=== PATIENT | male | born 1935 | race Caucasian/White ===

== ENCOUNTER 2019-11-11 08:49 | Outpatient (CLI) | payer MEDICARE, SELFPAY ==
[2019-11-11 09:25] LABS: Hemoglobin A1C 7.1 % (<5.7)
[2019-11-11 09:32] LABS: Alanine Aminotransferase 17 U/L (4-50); Albumin Level 3.9 g/dL (3.5-5.1); Alkaline Phosphatase 77 U/L (38-126); Aspartate Amino Transferase 26 U/L (17-59); Bilirubin,Total 0.4 mg/dL (0.2-1.3); Blood Urea Nitrogen 20 mg/dL (9-20); Calcium 9.3 mg/dL (8.4-10.2); Carbon Dioxide 29 mmol/L (22-30); Chloride 105 mmol/L (98-107); Estimated Glomerular Filt Rate > 60; Glucose 130 mg/dL (75-110); Sodium 138 mmol/L (137-145)
== END 2019-11-11 08:50 | disposition home or self-care (01) ==
PROVIDERS: PCP Family Medicine; Visit Provider Family Medicine
DX: E11.9 Type 2 diabetes mellitus without complications (principal)
CPT/HCPCS: 36415; 80053; 83036

== ENCOUNTER 2020-03-08 08:34 | Emergency (ER) | payer MEDICARE, SELFPAY ==
--- NOTE | ~2020-03-08 | XR_ITS ---
EXAMINATION: XR hand LT min 3V EXAM DATE: 03/08/2020 09:00 INDICATION: No known recent injury provided at this time. Pain of the left hand. TECHNIQUE: Left hand frontal, lateral and oblique projections obtained and reviewed. There is no pasquale or study for comparison. FINDINGS: Left metacarpal bones are unremarkable. There is severe 1st carpometacarpal primary osteo arthritis. There is mild to moderate interphalangeal primary osteoarthritis. There are no acute fract ures or dislocations identified. There is no subcutaneous gas. The soft tissue is unremarkable. T here are no radiopaque foreign bodies. There are no bony erosions identified. IMPRESSION: 1. No acute osseous findings. 2. Severe left 1st CMC joint osteoarthritis. Reviewed, dictated and finalized at location A.
[2020-03-08 08:41] VITALS: BP 120/81; PULSE 78; RESP 14; TEMP 36.6; O2SAT 97
[2020-03-08] MEDS: ACETAMINOPHEN 500 MG TABLET 1000 MG PO (09:01)
--- NOTE | 2020-03-08 09:42 | ED.UPPEXIN ---
HPI - Extremity Injury (Upper) General Chief Complaint: Extremity Injury, Upper Stated Complaint: achy hand Time Seen by Provider: 03/08/20 08:36 Source: patient Mode of arrival: ambulatory Limitations: no limitations History of Present Illness HPI narrative: This patient is an 84 year old male who presents for evaluation of left hand pain. Patient reports he woke up this morning and he noticed pain to left hand. He noticed this pain when he put on his watch. He reports swelling at his thumb. He has not taken any medication for pain. Related Data Home Medications Medication Instructions Recorded Confirmed furosemide 20 mg tablet 20 mg PO QAM 07/07/19 potassium chloride 20 mEq 20 meq PO DAILY 07/07/19 tablet,extended release Allergies Allergy/AdvReac Type Severity Reaction Status Date / Time No Known Allergies Allergy Verified 03/08/20 08:44 Review of Systems Review of Systems: All systems reviewed & are unremarkable except as noted in HPI and below PMFSH Past Medical History Medical History (Updated 03/08/20 @ 09:57 by Jessica Mccann MD) Atrial fibrillation, persistent Hypertension with heart disease Surgical History Surgical History (Updated 07/08/19 @ 08:41 by Ramo Rodriguez MD) H/O hernia repair times 5 History of bilateral knee replacement History of cholecystectomy Retinal detachment, left S/P coronary artery stent placement Social History Social History (Updated 11/11/19 @ 08:06 by Shauna Lozoya) Smoking status: Never smoker Second hand tobacco smoke exposure: No Alcohol intake: current Drinks per week: 3 Substance use: never Substance use type: does not use Gender identity (if verbalized by the patient): Male Exam Const: General: no acute distress and alert Orientation/consciousness: patient oriented x3 HENMT: Mouth: Yes Normal oral and palatal mucosa present Eyes: EOM: EOMs intact bilaterally Resp: Effort & Inspection: normal respiratory effort Skin: General skin exam: normal color Rashes: no rashes Neuro: General: patient oriented x3 and moves all extremities Extrem: Other: left hand with pain with movement at thumb. TTP along Thump and no erythema Course Reevaluation(s) Reevaluation #1: I Discussed with patient xray shows severe osteoarthritis at thumb. Date: 03/08/20 Time: 09:45 Vital Signs Vital signs: Vital Signs Temperature 97.9 F 03/08/20 08:41 Pulse Rate 78 03/08/20 08:41 Respiratory Rate 14 03/08/20 08:41 Blood Pressure 120/81 03/08/20 08:41 Pulse Oximetry 97 03/08/20 08:41 Temperature 97.9 F 03/08/20 08:41 Pulse Rate 65 03/08/20 10:14 Respiratory Rate 15 03/08/20 10:14 Blood Pressure 116/73 03/08/20 10:14 Pulse Oximetry 96 03/08/20 10:14 MDM - Extremity Injury (Upper) Imaging Data Radiologist's impression: ITS Impressions Hand X-Ray 03/08/20 09:08 IMPRESSION: 1. No acute osseous findings. 2. Severe left 1st CMC joint osteoarthritis. Discharge Plan Discharge Clinical Impression: Osteoarthritis of CMC joint of thumb Qualifiers: Osteoarthritis type: primary Laterality: left Qualified Code(s): M18.12 - Unilateral primary osteoarthritis of first carpometacarpal joint, left hand Patient Disposition: Home, Self-Care Condition: Stable Instructions: Antibiotic Form, Arthralgia (ED) Additional Instructions: Continue to take tylenol for your pain. Apply ice to help with pain and inflammation. Prescriptions: New methylprednisolone [Medrol (Simeon)] 4 mg tablets,dose pack See Rx Instructions .ROUTE .COMPLEX Qty: 21 RF: 0 No Action Xarelto 20 mg tablet 20 mg PO DAILY Qty: 30 RF: 5 tadalafil 5 mg tablet 5 mg PO DAILY Qty: 30 RF: 5 furosemide 20 mg tablet 20 mg PO QAM RF: 0 potassium chloride 20 mEq tablet extended release 20 meq PO DAILY RF: 0 atorvastatin 40 mg tablet 40 mg PO .COMPLEX Qty: 36 RF:
[2020-03-08 10:04] VITALS: BP 116/73; PULSE 65; RESP 15; O2SAT 96
[2020-03-08 10:14] VITALS: BP 116/73; PULSE 65; RESP 15; O2SAT 96
== END 2020-03-08 10:15 | disposition home or self-care (01) ==
PROVIDERS: Emergency Provider General Practice; PCP Family Medicine
DX: M18.12 Unilateral primary osteoarthritis of first carpometacarpal joint, left hand (principal); I10 Essential (primary) hypertension
CPT/HCPCS: 73130; 99283; A9270

== ENCOUNTER 2020-08-01 06:48 | Outpatient (CLI) | payer MEDICARE, SELFPAY ==
[2020-08-01 07:36] LABS: Basophils Percent Auto 0.7 % (0.2-1.2); Eosinophils Absolute Auto 0.1 K/mm3 (0-0.3); Hematocrit 45.7 % (42.0-52.0); Hemoglobin 15.1 g/dL (14.0-18.0); Immature Granulocyte Absolute 0.03 K/mm3 (0.00-0.031); Immature Granulocyte Percent A 0.5 % (0-0.5); Lymphocytes Absolute Auto 1.82 K/mm3 (0.9-3.2); Lymphocytes Percent Auto 29.8 % (18.3-44.2); Mean Corpuscular Hemoglobin 31.4 pg (26-34); Mean Platelet Volume 10.7 fl (7.4-10.4); Monocytes Absolute Auto 0.6 K/mm3 (0.1-0.6); Monocytes Percent Auto 10.1 % (2.6-8.5); Neutrophils Absolute Auto 3.5 K/mm3 (1.3-6.7); Neutrophils Percent Auto 56.9 % (45.5-73.1); Platelet Count Result 173 k/mm3 (150-375); Red Blood Count 4.81 M/mm3 (4.6-6.20); Red Cell Distribution Width 13.1 % (11.5-14.5); White Blood Count 6.1 K/mm3 (4.5-10.0)
[2020-08-01 08:38] LABS: Alanine Aminotransferase 24 U/L (4-50); Albumin Level 3.9 g/dL (3.5-5.1); Alkaline Phosphatase 79 U/L (38-126); Anion Gap 4 mmol/L (8-16); Aspartate Amino Transferase 30 U/L (17-59); Bilirubin,Total 0.5 mg/dL (0.2-1.3); Blood Urea Nitrogen 21 mg/dL (9-20); Calcium 9.6 mg/dL (8.4-10.2); Carbon Dioxide 31 mmol/L (22-30); Chloride 105 mmol/L (98-107); Cholesterol 126 mg/dL (0-200); Estimated Glomerular Filt Rate > 60; Glucose 151 mg/dL (75-110); HDL Direct 39 mg/dL; Potassium 4.7 mmol/L (3.4-5.0); Sodium 140 mmol/L (137-145); Triglycerides 118 mg/dL (<150)
[2020-08-01 08:50] LABS: LDL Cholesterol Direct 57 mg/dL
[2020-08-01 11:32] LABS: Hemoglobin A1C 7.4 % (<5.7)
== END 2020-08-01 06:49 | disposition home or self-care (01) ==
PROVIDERS: PCP Family Medicine; Visit Provider Physician Assistant
DX: E11.9 Type 2 diabetes mellitus without complications (principal); I11.9 Hypertensive heart disease without heart failure; I25.10 Atherosclerotic heart disease of native coronary artery without angina pectoris; I48.19 Other persistent atrial fibrillation
CPT/HCPCS: 36415; 80053; 80061; 83036; 84443; 85025

== ENCOUNTER → 2021-04-18 06:50 | Outpatient (CLI) | payer MEDICARE, SELFPAY ==
--- NOTE | ~2021-04-18 | XR_ITS ---
EXAMINATION: XR wrist RT 2V, XR hand BI arthritis min 3V, XR wrist LT 2V EXAM DATE: 04/18/2021 07:39 INDICATION: M19.049 - Primary osteoarthritis, unspecified hand TECHNIQUE: Right hand frontal, lateral and oblique projections obtained and reviewed. Left hand fron windy, lateral and oblique projections obtained and reviewed. Catchers projection of both hands. Fronta l and lateral projections right wrist, frontal and lateral projections left wrist. There is a left velasquez nd x-ray from 03/08/2020 for comparison FINDINGS: Right hand and wrist: There is mild to moderate polyarticular interphalangeal primary osteoarthritis. There is severe 1st carpometacarpal and moderate 1st metacarpophalangeal joint primary osteoarthriti s. There is moderate distal radial ulnar joint primary osteoarthritis. There are no bony erosions wilber ntified. There are no acute fractures identified. No radiopaque foreign bodies identified. Left hand and wrist: There is mild to moderate polyarticular interphalangeal joint primary osteoarthr itis. There is severe left carpometacarpal joint and moderate triscaphe joint primary osteoarthritis. There are no bony erosions identified. There are no acute fractures or dislocations identified. The re is no subcutaneous gas. The soft tissue is unremarkable. There are no radiopaque foreign bodies . IMPRESSION: Bilateral polyarticular primary osteoarthritis, most advanced at the carpometacarpal join ts, left greater than right. Reviewed, dictated and finalized at location B. IMPRESSION: Bilateral polyarticular primary osteoarthritis, most advanced at th e carpometacarpal joints, left greater than right. IMPRESSION: Bilateral polyarticular primary osteoarthritis, most advanced at th e carpometacarpal joints, left greater than right.
== END ==
PROVIDERS: PCP Family Medicine; Visit Provider Physician Assistant
DX: M19.041 Primary osteoarthritis, right hand (principal); M19.042 Primary osteoarthritis, left hand; M18.0 Bilateral primary osteoarthritis of first carpometacarpal joints
CPT/HCPCS: 73100; 73130

== ENCOUNTER 2021-10-16 07:43 | Outpatient (RCR) | payer MEDICARE, SELFPAY ==
--- NOTE | 2021-10-16 08:16 | PTOPEVAL ---
Thank you for referring Alec Browne to [facility].? The patient is scheduled to be seen for therapy? __2__x/week for 8 visits. Please review, sign, date and return this plan of care GARFIELD. I agree with and certify that the following plan of care is medically necessary. Referring Physician Date Admitting Provider: Attending Provider: SHARIFA JONES Referring Provider: *PT Outpatient Evaluation Start: 10/16/21 07:02 Freq: Status: Active Protocol: Document 10/16/21 07:02 DANIA (Rec: 10/16/21 08:16 [email or web address]) Therapy Assessment Status Assessment Status Assessment Status Evaluation Evaluation Information Problem Diagnosis left shoulder pain Onset 07/09/21 Subjective Information Pt. reports that he fell on Text:As Reported By Patient after tripping over a Family parking curb. He states that he fell face first. He reports that he had a large bruise on the left arm for about 1 month. He reports that he underwent xray. He states that his pain is slowly improving since the incident. He reports some minor shoulder problems due to arthritis before the fall. He states that he has no trouble with sleeping at night. He states that his goal is to prevent surgery and be able to move the arm better. Prior Level of Function Comments Additional Prior Level of Function Pt. reports that he is right Comments handed. 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 He reports that he cannot lift very much due to his arm pain. Pain Assessment Timing of Pain Assessment Timing of Pain Assessment Pre-Treatment Pain Scale Pain Scale Used Numeric (1 - 10) Self Report Pain Assessment Left Shoulder(s) Reported Pain Level 3 Pain Description Aching Lowest Pain Intensity 3 Greatest Pain Intensity 3 Pain Score Pain Score 3: Self Report Interventions Used Interventions Used By Clinicians Electrical Stimulation, Exercise,Heat Upper Extremity Range of Motion General Upper Extremity Range of Motion Gross Upper Extremity Range of Motion -right shoulder flexion AROM Comments
--- NOTE | 2021-11-09 08:03 | PTOPEVAL ---
Thank you for referring Alec Browne to [facility] [place].? The patient is scheduled to be seen for therapy? __2__x/week for 6 visits. Please review, sign, date and return this plan of care GARFIELD. I agree with and certify that the following plan of care is medically necessary. Referring Physician Date Admitting Provider: Attending Provider: SHARIFA JONES Referring Provider: *PT Outpatient Evaluation Start: 10/16/21 07:02 Freq: Status: Active Protocol: Document 11/09/21 07:00 DANIA (Rec: 11/09/21 08:02 [email or web address]) Therapy Assessment Status Assessment Status Assessment Status Progress Evaluation Information Problem Diagnosis left shoulder pain Onset 07/09/21 Subjective Information Pt. reports that he no longer Query Text:As Reported By Patient/ has a problem with getting the Family left arm into his shirt. He states that he still has pain but less intense. He reports that he still notices pain and weakness with lifting the arm overhead. Pt. reports that he is pleased with his progress but states that he would like to continue to improve his strength. Pain Assessment Timing of Pain Assessment Timing of Pain Assessment Pre-Treatment Pain Scale Pain Scale Used Numeric (1 - 10) Self Report Pain Assessment Left Shoulder(s) Reported Pain Level 2 Pain Score Pain Score 2: Self Report Interventions Used Interventions Used By Clinicians Electrical Stimulation, Exercise,Heat Upper Extremity Range of Motion General Upper Extremity Range of Motion Gross Upper Extremity Range of Motion -left shoulder flexion AROM Comments 100 degrees -left shoulder IR pt. reaches to the thoracolumbar junction -left shoulder ER pt. reaches to the CT junction Upper Extremity Muscle Strength Testing General Upper Extremity Strength Gross Upper Extremity Strength Comments -left shoulder flexion 3/5 -left shoulder ER 3/5 -left shoulder IR 4/5 Posture Posture Sitting Position Additional Posture Comments Pt. continues to present with excessive scapular elevation and upward rotation with overhead movement. General Exercise General Exercises Exercise Description -ball circles on wall for Query Text:Record Sets, Reps,
== END 2021-11-30 23:59 | disposition home or self-care (01) ==
LOC: CHSPT 07:43
DX: S46.012A Strain of muscle(s) and tendon(s) of the rotator cuff of left shoulder, initial encounter (principal)
CPT/HCPCS: 97014; 97110; 97140; 97161; G0283

== ENCOUNTER 2022-03-17 07:35 | Emergency (ER) | payer MEDICARE, SELFPAY ==
--- NOTE | ~2022-03-17 | XR_ITS ---
XR shoulder RT min 2V 03/17/2022 08:40 Indication: Right shoulder pain Procedure: 4 views right shoulder Comparison: No prior studies for comparison. Findings: There are degenerative changes of the glenohumeral joint. No fracture or traumatic malalign ment. No acute fracture, subluxation or dislocation. No significant soft tissue abnormality. Impression: 1: No acute fracture. Reviewed, dictated and finalized at location A. Impression: 1: No acute fracture.
[2022-03-17 07:36] VITALS: BP 142/69; PULSE 93; RESP 23; TEMP 36.1; O2SAT 97
--- NOTE | 2022-03-17 07:44 | ED.UPPEXIN ---
HPI - Extremity Injury (Upper) General Chief Complaint: Extremity Injury, Upper Stated Complaint: right clavicle pain x days s/p fall months ago Time Seen by Provider: 03/17/22 07:39 History of Present Illness HPI narrative: Patient is an 86-year-old male who presents ER with right shoulder pain. Pain waxing waning over the last 3 to 4 days. No numbness or tingling. No known trauma. 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 Has difficulty with lifting his arm up above his head due to pain. No swelling or bruising. Denies chest pain or shortness of breath. No exertional component. Has been taking Tylenol at times without improvement. Patient does report a fall onto his left side back in June but is unsure how that would relate to his right shoulder pain. Related Data Home Medications Medication Instructions Recorded Confirmed furosemide 20 mg tablet 20 mg PO QAM 07/07/19 01/02/22 potassium chloride 20 mEq 20 meq PO DAILY 07/07/19 01/02/22 tablet,extended release Allergies Allergy/AdvReac Type Severity Reaction Status Date / Time No Known Allergies Allergy Verified 03/17/22 07:43 Review of Systems Review of Systems: All systems reviewed & are unremarkable except as noted in HPI and below Constitutional: Constitutional: Denies chills, Denies fatigue and Denies fever(s) Cardiovascular: Cardiovascular: Denies chest pain, Denies rapid heart rate and Denies radiating jaw, neck or arm pain Respiratory: Respiratory: Denies cough and Denies dyspnea Gastrointestinal: Gastrointestinal: Denies abdominal pain, Denies nausea and Denies vomiting Musculoskeletal: Musculoskeletal: Reports arthralgias, Denies joint swelling and Denies muscle cramps Integumentary/Breasts: Skin/Breast: Denies erythema and Denies rash Neurologic: Denies syncope, Denies focal weakness and Denies numbness [facility] Past Medical History Medical History Atrial fibrillation, persistent Hypertension with heart disease Obesity Surgical History Surgical History H/O hernia repair times 5 History of bilateral knee replacement History of cholecystectomy Retinal detachment, left S/P coronary artery stent placement Family History Family History Mother Family history of kidney disease Social History Social History (Updated 01/02/22 @ 07:46 by Ariana Huffman) Smoking status: Never smoker Second hand tobacco smoke exposure: No Alcohol intake: current Drinks per week: 3 Substance use: never Substance use type: does not use Gender identity (if verbalized by the patient): Male Sexual Orientation (if Verbalized by the Patient): Straight or Heterosexual Exam Narrative: GENERAL: Well-appearing, well-nourished, and in no acute distress. HEAD: Normocephalic, atraumatic. Neck: No midline tenderness of the cervical spine. No reproducible paraspinal muscular tenderness. CHEST: Clear to auscultation. No respiratory distress. HEART: Regular rate and rhythm. Normal peripheral pulses. ABDOMEN: Soft, nontender, nondistended. EXTREMITIES: Limited range of motion right shoulder due to pain. No swelling of the shoulder. Has tenderness when lifting above 90 degrees at the shoulder. Normal internal and external rotation. SKIN: Warm, dry, no rash. NEURO: Alert and oriented x3. PSYCH: Normal mood and affect. Course Course Emergency Course: Patient placed in sling for comfort. We will give muscle laxer's and Tylenol for home. Will avoid ibuprofen due to the fact that he is on Xarelto. Will give orthopedic follow-up. Vital Signs Vital signs: Vital Signs Temperature 97.0 F L 03/17/22 07:36 Pulse Rate 93 03/17/22 07:36 Respiratory Rate 23 H 03/17/22 07:36 Blood Pressure 142/69 H 03/17/22 07:36 Pulse
[2022-03-17] MEDS: MORPHINE SULFATE (*CRX) 4 MG/ML INJ IV PUSH (07:51)
[2022-03-17 08:01] VITALS: BP 120/77; PULSE 86; RESP 20; O2SAT 94
[2022-03-17 08:11] LABS: Basophils Percent Auto 0.2 % (0.2-1.2); Eosinophils Percent Auto 0.4 % (0-4.4); Hematocrit 44.8 % (42.0-52.0); Hemoglobin 15.1 g/dL (14.0-18.0); Immature Granulocyte Absolute 0.05 K/mm3 (0.00-0.031); Immature Granulocyte Percent A 0.6 % (0-0.5); Lymphocytes Absolute Auto 1.31 K/mm3 (0.9-3.2); Lymphocytes Percent Auto 15.6 % (18.3-44.2); Mean Corpuscular HGB Conc 33.7 g/dl (32-36); Mean Corpuscular Hemoglobin 32.3 pg (26-34); Mean Corpuscular Volume 95.9 fl (80-100); Mean Platelet Volume 10.8 fl (7.4-10.4); Monocytes Absolute Auto 0.7 K/mm3 (0.1-0.6); Monocytes Percent Auto 8.1 % (2.6-8.5); Neutrophils Absolute Auto 6.3 K/mm3 (1.3-6.7); Neutrophils Percent Auto 75.1 % (45.5-73.1); Platelet Count Result 161 k/mm3 (150-375); Red Blood Count 4.67 M/mm3 (4.6-6.20); White Blood Count 8.4 K/mm3 (4.5-10.0)
[2022-03-17 08:23] LABS: Anion Gap 12 mmol/L (8-16); Blood Urea Nitrogen 17 mg/dL (9-20); Calcium 9.4 mg/dL (8.4-10.2); Carbon Dioxide 25 mmol/L (22-30); Chloride 103 mmol/L (98-107); Estimated CRCL calculation 89 ml/min; Estimated Glomerular Filt Rate > 60; Glucose 157 mg/dL (65-110); Potassium 4.1 mmol/L (3.4-5.0); Sodium 140 mmol/L (137-145)
[2022-03-17 08:46] VITALS: BP 96/69; PULSE 75; RESP 14; O2SAT 92
[2022-03-17 09:16] VITALS: BP 101/69; PULSE 81; RESP 20; O2SAT 96
[2022-03-17] MEDS: KETOROLAC 15 MG/ML VIAL (*BKC) IV PUSH (09:45)
[2022-03-17] MEDS: diazePAM INJ (*CRX) 10 MG/2 ML SYRINGE 2.5 MG IV PUSH (09:46)
[2022-03-17 09:47] VITALS: BP 107/75; PULSE 77; RESP 22; O2SAT 96
[2022-03-17 10:46] VITALS: BP 114/79; PULSE 70; RESP 38; O2SAT 94
== END 2022-03-17 11:45 | disposition home or self-care (01) ==
PROVIDERS: Emergency Provider Emergency Medicine; PCP Family Medicine
DX: M25.511 Pain in right shoulder (principal); I48.19 Other persistent atrial fibrillation; I11.9 Hypertensive heart disease without heart failure; E66.9 Obesity, unspecified; Z68.35 Body mass index [BMI] 35.0-35.9, adult; Z96.653 Presence of artificial knee joint, bilateral
CPT/HCPCS: 36415; 73030; 80048; 85025; 96374; 96375; 99284; A4565; J1885; J2270; J3360

== ENCOUNTER 2023-05-09 07:24 | Outpatient (CLI) | payer MEDICARE, SELFPAY ==
--- NOTE | ~2023-05-09 | CT_ITS ---
CT of the Abdomen and Pelvis: Indication: Prostate cancer Technique: 2.5 mm axial scans were obtained through the abdomen and pelvis following intravenous adm inistration of 100 cc of Omnipaque 350. Dose reduction technique was used on this scan by utilizing a utomated exposure control and iterative reconstruction technique. The dose-length product (DLP) was 1 366.16 mGy-cm. COMPARISON: 05/16/2018 Findings: Scans through the lung bases no straight minimal bibasilar chronic interstitial change. Ca rdiomegaly noted. The liver, spleen, pancreas, right adrenal gland, and kidneys are within normal limits. Cholecystecto my clips noted. 1.4 cm left adrenal nodule is present, stable since prior exam. There are atheroscler otic calcifications of the aorta. No lymphadenopathy. No bowel obstruction or bowel wall thickening. There is evidence of prior herniorrhaphy with presumed postoperative seroma seroma surrounding the mesh material, measuring up to 13.8 x 6.1 cm in transver se dimensions. Images through the pelvis were performed. Urinary bladder unremarkable. Prostate gland mildly enlarge d. Possible 1.7 cm mildly hyperdense mass at the lower right prostate gland. No ascites. Impression: No definite evidence for metastatic disease. Mildly enlarged prostate gland with questionable 1.7 cm mildly hyperdense mass at the lower right pro state gland. Correlate with relevant history. 1.4 cm left adrenal nodule is stable since 2018, therefore most consistent with adenoma. Prior herniorrhaphy with extensive seroma surrounding the mesh, similar to prior exam, although the s eroma is probably mildly increased in extent. Reviewed, dictated and finalized at location . TRAINING SPECIALIST Impression: No definite evidence for metastatic disease. Mildly enlarged prostate gland with questionable 1.7 cm mildly hyperdense mass at the lower right prostate gland. Correlate with relevant history. 1.4 cm left adrenal nodule is stable since 2018, therefore most consistent with adenoma. Prior herniorrhaphy with extensive seroma surrounding the mesh, similar to prio r exam, although the seroma is probably mildly increased in extent.
--- NOTE | ~2023-05-09 | NM_ITS ---
EXAMINATION: NM bone scan whole body DATE: 05/09/2023 11:00 INDICATION: Prostate cancer TECHNIQUE: 26.2 mCi Tc-99m HDP was administered intravenously. Delayed whole-body scintigrams were o btained. COMPARISON: CT abdomen pelvis dated 05/09/2023 and cervical spine radiographs dated 11/09/2013 FINDINGS: Photopenic defects at the bilateral knees consistent with total knee arthroplasties. Symmetric increa sed uptake at the bilateral patellae which could be either degenerative or related to patellar resurf acing associated with the arthroplasty. Additional likely degenerative joint centered uptake at the r ight sternoclavicular joint, a few joints of the left ankle, mid and hindfoot at the bilateral hands and wrists. Mild joint centered uptake in the spine with associated prominent osteoarthritic changes at the costovertebral articulations on the right at T11 and T12, the bilateral L4 and L5 facet joints as well as multiple cervical facet joints. Additional mild disc centered uptake with associated dege nerative endplate remodeling on prior CT on the right at L1-L2 and L2-L3 and on the left at L4-L5. No other suspicious foci of abnormal bone uptake to suggest osseous metastatic disease. IMPRESSION: 1. No evident osseous metastatic disease. Reviewed, dictated and finalized at location A. IARD TABLE REPAIRER
== END 2023-05-09 07:25 | disposition home or self-care (01) ==
PROVIDERS: PCP Family Medicine; Visit Provider Urology
DX: C61 Malignant neoplasm of prostate (principal); E27.9 Disorder of adrenal gland, unspecified
CPT/HCPCS: 74177; 78306; A9503; Q9967